=== PATIENT | female | born 1955 | race Caucasian/White ===

== ENCOUNTER 2018-09-23 19:29 | Emergency (ER) | payer SELFPAY ==
[~2018-09-23] VITALS: Ht 154.9 cm; Wt 94.9 kg
[2018-09-23 19:48] VITALS: BP 161/84; PULSE 87; RESP 20; Ht 154.9 cm; Wt 94.9 kg
== END 2018-09-23 22:23 | disposition left against medical advice (07) ==
LOC: FTE 19:29
DX: Z53.21 Procedure and treatment not carried out due to patient leaving prior to being seen by health care provider (principal)